=== PATIENT | female | born 2000 | race Caucasian/White ===

== ENCOUNTER 2024-05-17 13:58 | Emergency (ER) | payer SELFPAY ==
[2024-05-17 13:59] VITALS: BP 133/92
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
[2024-05-17] MEDS: MOTRIN 600 MG PO (15:25)
[2024-05-17] MEDS: FLEXERIL 10 MG PO (15:25)
[2024-05-17] MEDS: TYLENOL 650 MG PO (15:26)
[2024-05-17 15:29] VITALS: BP 139/83
[2024-05-17 15:31] VITALS: BP 139/83
== END 2024-05-17 15:32 | disposition home or self-care (01) ==
LOC: EMR 13:58
PROVIDERS: EMERGENCY PHYSICIAN Emergency Medicine; FAMILY PHYSICIAN Nurse Practitioner Family
DX: S16.1XXA Strain of muscle, fascia and tendon at neck level, initial encounter (principal); V49.49XA Driver injured in collision with other motor vehicles in traffic accident, initial encounter
CPT/HCPCS: 99283